=== PATIENT | male | born 1950 | race Caucasian/White ===

== ENCOUNTER 2024-08-24 16:15 | Inpatient (IN) | payer MEDICARE, BC ==
[~2024-08-24] VITALS: Ht 175.3 cm; Wt 71.2 kg
[2024-08-24] MEDS ORDERED: QUET25TA36 PO (16:44)
[2024-08-24] MEDS ORDERED: ALPR0.255 PO (16:44)
[2024-08-24] MEDS ORDERED: ATOR40TA PO (16:44)
[2024-08-24] MEDS ORDERED: SERT-438 PO (16:44)
[2024-08-24] MEDS ORDERED: PROP10TA68 PO (16:44)
[2024-08-24] MEDS ORDERED: GABA-532 PO (16:44)
[2024-08-24] MEDS ORDERED: LOSA50TA39 PO (16:44)
[2024-08-24] MEDS ORDERED: PROPRANOLOL HCL 10 MG TABLET PO PRN (19:30)
[2024-08-24 21:00] VITALS: BP 112/54; TEMP 97.7; O2SAT 95
[2024-08-24] MEDS: ATORVASTATIN 40 MG TABLET PO SCH (21:00)
[2024-08-24] MEDS ORDERED: MAG HYDROX/AL HYDROX/SIMETH 30 ML LIQUID UDC PO PRN (21:45)
[2024-08-24] MEDS ORDERED: ACETAMINOPHEN 325 MG TABLET PO PRN (21:45)
[2024-08-24] MEDS ORDERED: ZOLPIDEM 5 MG TABLET PO PRN ×2 (21:45)
[2024-08-24] MEDS ORDERED: LORAZEPAM 0.5 MG TABLET PO PRN (21:45)
[2024-08-24] MEDS ORDERED: MAGNESIUM HYDROXIDE 30 ML LIQUID UDC PO PRN (21:45)
[2024-08-24] MEDS: LORAZEPAM 1 MG TABLET PO PRN (22:13)
[2024-08-25 07:54] LABS: ALANINE AMINOTRANSFERASE 38 U/L (16-63); ALBUMIN 3.6 g/dL (3.4-5.0); ALKALINE PHOSPHATASE 107 U/L (50-136); ASPARTATE AMINOTRANSFERASE 20 U/L (15-37); BILIRUBIN,TOTAL 0.6 mg/dL (0.2-1.0); CALCIUM 9.3 mg/dL (8.5-10.1); CARBON DIOXIDE 30 mmol/L (21-32); CHLORIDE 103 mmol/L (98-107); GLUCOSE 114 mg/dL (74-106); POTASSIUM 4.7 mmol/L (3.5-5.1); SODIUM SERUM 138 mmol/L (136-145); TOTAL PROTEIN, SERUM 7.6 g/dL (6.4-8.2); UREA NITROGEN, BLOOD 14 mg/dL (7-18)
[2024-08-25 08:39] VITALS: BP 100/54; TEMP 98; O2SAT 100
[2024-08-25 08:40] VITALS: BP 156/89; TEMP 98; O2SAT 100
[2024-08-25] MEDS: LOSARTAN POTASSIUM 50 MG TABLET PO SCH (09:32)
[2024-08-25] MEDS: VENLAFAXINE XR 37.5 MG CAP.SR.24H PO SCH (11:39)
[2024-08-25] MEDS: GABAPENTIN 100 MG CAPSULE PO SCH (12:06)
[2024-08-25] MEDS: LORAZEPAM 1 MG TABLET PO PRN (12:11)
[2024-08-25 15:19] VITALS: BP 103/57; TEMP 98; O2SAT 99
[2024-08-25 20:00] VITALS: BP 108/58; TEMP 97.7; O2SAT 94
[2024-08-25] MEDS: QUETIAPINE FUMARATE 25 MG TABLET PO SCH (21:16)
[2024-08-26 08:08] VITALS: BP 124/66; TEMP 97.9; O2SAT 93
[2024-08-26 16:47] VITALS: BP 104/57; TEMP 98.3; O2SAT 95
[2024-08-26 20:00] VITALS: BP 117/63; TEMP 97.8; O2SAT 97
[2024-08-26] MEDS: MUPIROCIN 2% OINT 22 GM TUBE NS SCH (21:00)
[2024-08-27 08:10] VITALS: BP 154/77; TEMP 97.8; O2SAT 100
[2024-08-27 16:37] VITALS: BP 148/63; TEMP 97.8; O2SAT 97
[2024-08-27 20:06] VITALS: BP 126/66; TEMP 98.1; O2SAT 99
[2024-08-28 08:10] VITALS: BP 119/73; TEMP 97.4; O2SAT 96
[2024-08-28] MEDS: GABAPENTIN 100 MG CAPSULE PO SCH (08:29)
[2024-08-28] MEDS ORDERED: VENLAFAXINE XR 37.5 MG CAP.SR.24H PO SCH (09:00)
[2024-08-28] MEDS: VENLAFAXINE XR 75 MG TAB.ER.24H PO SCH (09:05)
[2024-08-28 16:23] VITALS: BP 108/57; TEMP 98.6; O2SAT 98
[2024-08-28 19:44] VITALS: BP 121/70; TEMP 97.9; O2SAT 96
[2024-08-29 07:52] VITALS: BP 151/75; TEMP 98; O2SAT 98
[2024-08-29 15:04] VITALS: BP 117/76; TEMP 98.4; O2SAT 99
[2024-08-29 20:00] VITALS: BP 117/62; TEMP 98; O2SAT 97
[2024-08-30 08:09] VITALS: BP 150/74; TEMP 98.2; O2SAT 98
[2024-08-30 08:10] VITALS: BP 150/74; TEMP 98.2; O2SAT 98
[2024-08-30 15:18] VITALS: BP 97/53; TEMP 98; O2SAT 98
[2024-08-30 20:00] VITALS: BP 104/55; TEMP 98.1; O2SAT 96
[2024-08-31 07:57] VITALS: BP 115/67; TEMP 98; O2SAT 98
[2024-08-31 15:55] VITALS: BP 97/54; TEMP 98; O2SAT 98
[2024-08-31 20:00] VITALS: BP 103/53; TEMP 97.7; O2SAT 96
[2024-09-01 08:00] VITALS: BP 110/62; TEMP 98; O2SAT 98
[2024-09-01 15:19] VITALS: BP 111/64; TEMP 98; O2SAT 98
[2024-09-01 19:42] VITALS: BP 101/56; TEMP 98.1; O2SAT 96
[2024-09-02 08:54] VITALS: BP 128/64; TEMP 98.3; O2SAT 98
[2024-09-02 16:25] VITALS: BP 127/66; TEMP 98; O2SAT 98
[2024-09-02 20:00] VITALS: BP 105/54; TEMP 97.5; O2SAT 96
[2024-09-03 08:38] VITALS: BP 128/61; TEMP 98.5; O2SAT 98
== END 2024-09-03 13:15 | disposition home or self-care (01) | DRG 885 ==
LOC: ER 16:23 → GPS 20:10
PROVIDERS: ADMIT Psychiatry & Neurology Psychiatry; ATTEND Internal Medicine
DX: F31.5 Bipolar disorder, current episode depressed, severe, with psychotic features (principal); R45.851 Suicidal ideations; Z22.322 Carrier or suspected carrier of Methicillin resistant Staphylococcus aureus; I44.4 Left anterior fascicular block; Z87.442 Personal history of urinary calculi; K86.89 Other specified diseases of pancreas; K57.30 Diverticulosis of large intestine without perforation or abscess without bleeding; K59.00 Constipation, unspecified; K40.90 Unilateral inguinal hernia, without obstruction or gangrene, not specified as recurrent; E78.5 Hyperlipidemia, unspecified; N20.0 Calculus of kidney
CPT/HCPCS: 36415